=== PATIENT | female | born 1975 | race Caucasian/White ===

== ENCOUNTER → 2018-01-08 | Day surgery (SDC) | payer OTHER ==
--- NOTE | 2018-01-04 08:55 | History and Physical ---
History & Physical Date of Service Jan 04, 2018. History & Physical Plan of care discussed with Dr. 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 Holland is a 42 year old white female with upper and lower extremity spasticity. Patient was reporting neck pain, shoulder pain, and lower extremity weakness/heaviness in the summer 2016. Patient was found to have severe cervical spinal stenosis with myelopathy and preceded with an anterior cervical discectomy with fusion and plating with a partial corpectomy at the C4 through 6 levels. Patient does have persistent aching, stiffness, throbbing, and spasms affecting the right greater than left lower extremity and left greater than right upper extremity. There is associated gait dysfunction and urinary urgency. There is frequent contraction of the left hand and clonic episodes of the right lower extremity. Walking and standing do increase her symptoms. There are no true radicular symptoms to her pain complaints. There are paresthesias along the bilateral hands and feet. No constitutional complaints. There are occasional falling episodes. REVIEW OF SYSTEMS Constitutional: Negative for fever, chills, sweats Eyes: Negative for eye pain, photophobia, and drainage Ear, nose, mouth, throat: Negative for ear pain, nasal congestion, mouth lesions , change in voice Respiratory: Negative for wheezing, sputum production Cardiovascular: Negative for chest pain, palpitations, calf pain Gastrointestinal: Negative for abdominal pain, belching, bloating Genitourinary: Negative for dysuria, urinary incontinence. + Urinary urgency Musculoskeletal: See HPI Integumentary: Negative for nail changes, skin yellowing, pruritus Neurological: Negative for abnormal speech, seizure type activity PAST MEDICAL HISTORY: 1. Spastic bladder 2. History of cervical severe spinal stenosis with myelopathy causing cord compression 3. Vitamin D deficiency 4. Vitamin B12 deficiency PAST SURGICAL HISTORY: 1. Anterior cervical discectomy with fusion and plating with partial corpectomy at C4 through C6 SOCIAL HISTORY: She is lives with her family. Smokes cigarettes 1 pack per day 20 years. Drinks approximately 4 alcoholic drinks per week. WORK HISTORY: Patient is disabled. ALLERGIES: No known drug allergies MEDICATIONS: 1. Baclofen 20 mg 4 times daily 2. Zanaflex 4 mg 3 times daily PHYSICAL EXAMINATION: VITAL SIGNS: Per admission GENERAL: Mrs. Holland is a 42 year old white female that is well nourished; well appearing; in no acute distress. Cognition intact and speech is appropriate. HEAD: Normocephalic; atraumatic. EYES: Pupils are round, equal, and reactive to light; EOM intact. ENT: No external ear discharge or lesions. No rhinorrhea or epistaxis. No mucosal lesions. NECK: Well healed horizontal incision of the anterior cervical region. Full ROM in all planes. No midline, facet joint, or paravertebral muscular tenderness or spasm. PULM: Clear to auscultation. No wheezes, rales, or rhonchi. CHEST: Regular chest respiration and excursion. UPPER EXTREMITIES: Hand grasping and opposition strength is 4/5. Biceps and triceps strength is 4/5. Flexion contracture noted of the left hand. Passive extension without difficulty. LOWER EXTREMITIES: Moderate rigidity with extension on the right. Strength is 4 /5 throughout. NEURO: CN II-XII grossly intact with no focal deficits noted. AAO x 3. Diminished sensation to sharp and dull sensation of the hands in a non- dermatomal pattern. No ankle clonus. Fullness is noted along the right lower extremity with extension. Biceps reflex L +3 R +3 Triceps reflex L +3 R +3 Brachioradialis Reflex L +3 R +3 Patellar Reflex L +3 R +3 Achilles Reflex L +3 R +3 SKIN: No lesions, erythema, or rashes noted. ASSESSMENT: Incomplete quadriparesis with upper and lower extremity spasticity TREATMENT: Mrs. Holland does continue to experience spasms in the bilateral upper and lower extremities despite the maximum amount of oral muscle relaxer of Baclofen and Zanaflex. She does continue to report moderate limitation into her daily activities due to the spasms. It is recommended that the patient undergo an intrathecal baclofen trial for consideration of a possible intrathecal pump and catheter delivery system implantation. Risks and benefits were reviewed and questions were answered in great detail. She would like to pursue the intrathecal Baclofen trial.
[~2018-01-08] VITALS: Ht 157.5 cm; Wt 54.4 kg
[2018-01-08] VITALS (18 sets, daily range): BP systolic 100–130; BP diastolic 1–86; PULSE 76–96; TEMP 36.8–37.6; O2SAT 94–97; Ht 157.5 cm; Wt 54.4 kg
[~2018-01-08] MED LIST: BACLOFEN 50 MCG/ML ITR SCH; LRS20 PO; SODIUM CHLORIDE 0.9% 1000ML 1,000 ML IV SCH; TIZA4CAP PO
--- NOTE | 2018-01-08 08:02 | History & Physical Bridge Note ---
H&P Re-Evaluation Bridge Note: I have examined the patient, reviewed the History & Physical and in the interval since the performance of the History & Physical I have noted the following changes of clinical significance: No changes noted History reviewed, examination performed, pertinent laboratory and imaging studies reviewed. No contraindications noted to proceeding with the proposed procedure. Potential risks including infection, nerve injury, bleeding, hematoma or seroma formation, additional surgical procedures to address these complications, as well as failure to achieve complete relief of preoperative symptoms after the procedure were discussed with the patient. Risks associated with anesthesia required to perform this procedure were reviewed. Alternatives to this procedure were discussed with the patient. Patient's questions were answered. Patient gave informed consent.
--- NOTE | 2018-01-08 08:33 | Discharge Instructions ---
Discharge Instructions Date of Service Jan 08, 2018. Visit Reason for Visit: Spastic Incomplete Quadriparesis Discharge Discharge Diagnosis / Problem: Cervical myelopathy. Discharge Goals Goal(s): Decrease discomfort, Improve function Medications Stopped Medications Name(s): None Activity Recommendations Activity Recommendations: No Limitations Anesthesia . Post Anesthesia Instructions: If you have had General Anesthesia or IV Sedation: * Do not drive today. * Resume driving when surgeon permits. * Do not make important decisions or sign legal documents today. * Call surgeon for: * Temperature elevations greater than 101 degrees F. * Uncontrollable pain. * Excessive bleeding. * Persistent nausea and vomiting. * Medication intolerance (nausea, vomiting or rash). * For nausea and vomiting use only clear liquids such as: tea, soda, bouillon until nausea subsides, then gradually increase diet as tolerated. * If you have any concerns or questions, call your surgeon's office. If physician is unavailable and it is an emergency, call 911 or go to the nearest emergency room. . Instructions Instructions / Follow-Up . * Change dressings daily. Apply sterile dry gauze. * Call [facility] [phone] or go to the nearest emergency room if he experience high fevers, new back pain, new neurological symptoms such as numbness or weakness in the lower extremity or new bowel bladder incontinence. Also of call if he experience a headache that is positional. * Wear abdominal binder. * No showers for 3 days. * Resume normal activity. No repetitive bending, twisting or reaching overhead for 2 weeks. Do not lift more than 5 pounds for 2 weeks. . Follow-Up Follow-Up: routine office visit in 1/2 weeks Diet Recommendations Home Diet: no limitations Procedures Procedures Performed: Lumbar puncture with intrathecal injection of baclofen. Pending Studies Studies pending at discharge: no Medical Emergencies . Who to Call and When: Medical Emergencies: If at any time you feel your situation is an emergency, please call 911 immediately. . Non-Emergent Contact Non-Emergency issues call your: Primary Care Provider Call Non-Emergent contact if: temperature is above 100.5 . . "Provider Documentation" section prepared by Russ Browne. . [place] Drug Monitoring Program Search Results: patient reviewed within database, no issues identified
--- NOTE | 2018-01-08 09:25 | Pain Clinic Procedure Note ---
Pain Management Procedure Note Date of Procedure Jan 08, 2018. Procedure Description Procedure: Intrathecal baclofen trial for spasticity Procedure Time Out: side/site verified, patient ID confirmed, correct procedure Consent Obtained: written Performed By: Dr. Browne Indications: diagnostic Contraindications: none Pre Procedure Vital Signs Date Time Temp Pulse Resp B/P (MAP) Pulse Ox O2 Delivery O2 Flow Rate FiO2 01/08/18 07:49 37 87 18 118/79 (92) 96 Room Air ASA Class: 2 Description: INTRATHECAL BACLOFEN TRIAL FOR SPASTICITY Diagnosis: Cervical spinal cord malacia. Chronic spasticity. Side/Level injected: Approximate L4/L5. Surgeon: Dr. Browne Prior to starting, the Patients diagnosis and the procedure were reviewed with the patient in detail. Possible risks and complications including infection, bleeding, damage to surrounding structures and increased pain were discussed. Alternative therapies were also reviewed. Patients questions were answered and they agreed to proceed. Informed consent was obtained. Allergies and medication list was reviewed. The patient was brought to the procedure room and placed in sitting position. Immediately prior to starting the procedure, a ``time out was conducted with the staff and the patient where the patient was identified, proposed procedure was verified, consent was reviewed and the proper site for the planned procedure was identified. Monitors used included intermittent blood pressure with automated device, continuous pulse oximetry and level of consciousness. Patient was not given any intravenous sedation and constant verbal contact was maintained throughout the procedure. On examination, no signs of skin breakdown or infection were noted at the injection site. The site was cleansed with DuraPrep followed by Betadine. Sterile drapes were applied. 1% lidocaine 3 cc, was infiltrated in the skin and subcutaneous tissues using a 27 gauge needle. A 20gauge introducer followed by a 24gauge 3.5 spinal needle was then inserted through the anesthetized area using 1.5 inch introducer and advanced via midline approach. The patient did not experience pain or paresthesia. Bevel of the needle was directed in the cephalad direction. Aspiration via the needle demonstrated positive CSF but no blood. Next, 37 mcg of preservative free baclofen was injected through the needle. The needle was then withdrawn. Adequate hemostasis was noted. Physical therapy will evaluate the patient three additional times over the next six hours to monitor response. Patient tolerated the procedure uneventfully without complications. Patient was brought to recovery area and observed. Vital signs were stable prior to discharge. 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 Complications: none Patient Tolerated Procedure: well Post-Procedure Vital Signs: Vital Signs Date Time Temp Pulse Resp B/P (MAP) Pulse Ox O2 Delivery O2 Flow Rate FiO2 01/08/18 07:49 37 87 18 118/79 (92) 96 Room Air Discharge Instructions: reviewed & understood Additional Comments: Potential risks including infection, bleeding, nerve injury, persistent pain at the injection site, reaction to any one of the medication used for the procedure , possibly of postdural puncture headache as well as persistent symptoms after the procedure were discussed with the patient. Alternatives to this procedure were also discussed with the patient. Patient's questions were answered. Patient gave informed consent. [place] Drug Monitoring Program Search Results: patient reviewed within database, no issues identified
== END | disposition home or self-care (01) ==
LOC: C.ACU 07:11
PROVIDERS: ATTEND Anesthesiology
DX: R25.2 Cramp and spasm (principal); G82.50 Quadriplegia, unspecified; M48.02 Spinal stenosis, cervical region; G95.9 Disease of spinal cord, unspecified; N32.89 Other specified disorders of bladder